=== PATIENT | female | born 1995 | race Caucasian/White ===

== ENCOUNTER 2016-03-24 17:23 | Emergency (ER) | payer BC ==
[~2016-03-24] VITALS: Ht 167.6 cm; Wt 53.9 kg
[2016-03-24 17:35] VITALS: TEMP 37; Ht 167.6 cm; Wt 53.9 kg
[2016-03-24] MEDS ORDERED: FAMOTIDINE 20MG/102 ML D5W IV STA (17:48)
[2016-03-24] MEDS ORDERED: DiphenhydrAMINE HCL 50 MG/ML VIAL IV STA (17:48)
--- NOTE | 2016-03-24 18:44 | EMERGENCY ROOM VISIT NOTE ---
History First contact with patient: 17:39 Chief Complaint: ALLERGIC REACTION Stated Complaint: ALLERGIC REACTION Nursing Triage Summary: Pt presents with swelling to lip and left eye, started at 1500. Denies difficulty swallowing. Pt seen at [facility] and given a steroid (decadron ) before coming here. Pt reports feeling lightheaded in the waiting room and hives. Pt states, "This happens all the time since Jan.18, that was the first time. They don't know what I'm having a rxn to." Pt rx Pepcid and Prednisone at urgent care. Denies SOB. History of Present Illness The patient is a 20 year old female who presents to the Emergency Room with complaints of swelling to her lip and left eye which started approximately 3 hours ago. She also reports an itchy rash to the right side of her neck. The patient states that she has had approximately 15 episodes of similar symptoms over the past 2 months. She states the first episode occurred when she was in [place] and this was the most severe. At that time, she had swelling of both of her lips and both of her eyes. She has since seen an electronics instructor, who did blood tests which did not show what the patient was allergic to. She has a follow-up appointment next week with her electronics instructor. She states that when she has these reactions, her lips become swollen and she sometimes has swelling of her eyes. She states that the reaction came on suddenly 3 hours ago. She denies any new medications, new foods, or new environmental exposures. She denies any shortness of breath, difficulty swallowing, abdominal pain, nausea or vomiting. She was initially seen at [facility] and given an injection of a steroid and prescription for prednisone and Pepcid. She has not taken any other medications. She was told at [facility] to come here if her symptoms become worse, and she states that she feels the lip swelling may be worsening. Review of Systems A complete 10-point Review of Systems was discussed with the patient, with pertinent positives and negatives listed in the History of Present Illness. All remaining Review of Systems questions can be considered negative unless otherwise specified. Social History Smoking Status: Current Every Day Smoker Current/Historical Medications No Active Prescriptions or Reported Meds Allergies Coded Allergies: No Known Allergies (Unverified , 03/24/16) Physical Exam Vital Signs Date Time Temp Pulse Resp B/P Pulse Ox O2 Delivery O2 Flow Rate FiO2 03/24/16 18:55 75 20 120/81 99 03/24/16 17:35 37.0 90 20 123/79 98 Room Air Physical Exam VITALS: Vitals are noted on the nurse's note and reviewed by myself. Vital signs stable. GENERAL: This is a 20-year-old female, in no acute distress, nondiaphoretic, well-developed well-nourished. SKIN: There are erythematous urticarial lesions over the right side of the neck. No further rashes. FACE: There is swelling of the upper lip and minimal swelling of the left infraorbital region. There is no additional swelling. HEENT: Normocephalic. PERRLA. EOMI. Nares patent. Mucous membranes moist. Neck is supple without nuchal rigidity. HEART: Regular rate and rhythm without murmurs gallops or rubs. LUNGS: Clear to auscultation bilaterally without wheezes, rales or rhonchi. ABDOMEN: Soft, nontender to palpation. NEURO: Patient was alert and oriented to person place and time. Medical Decision & Procedures Medications Administered Medications (Trade) Dose Ordered Sig/Berto Route Start Time Stop Time Status Last Admin Dose Admin Diphenhydramine HCl (Benadryl Inj) 50 mg NOW STAT IV 03/24/16 17:48 03/24/16 17:50 DC 03/24/16 17:58 50 MG Famotidine (Pepcid 20mg/100 ml) 20 mg ONE STAT IV 03/24/16 17:48 03/24/16 17:50 DC 03/24/16 17:58 20 MG Medical Decision Differential diagnosis includes allergic reaction, anaphylaxis, angioedema, among others. The patient was evaluated as above. She does have swelling of the upper lip and left infraorbital region. She has had multiple episodes like and has seen an electronics instructor at home. She already received Decadron prior to arrival here. She was given 50 mg Benadryl IV and 20 mg Pepcid IV. On reassessment, she did have some improvement of her swelling and felt ready for discharge home. She will take the prednisone and Pepcid as prescribed by [facility]. The patient should return for worsening symptoms. She verbalized understanding of my assessment and treatment plan and was discharged home in good condition. Impression Primary Impression: Facial swelling Departure Information Dispostion Home / Self-Care Condition GOOD Prescriptions No Active Prescriptions or Reported Meds Referrals Kelly Rubio M.D. (PCP) Patient Instructions My [facility] Additional Instructions You have been treated in the Emergency Department for an Allergic Reaction. You have been treated and monitored in the Emergency Department appropriately. You should take Benadryl (diphenhydramine) []25-50 mg orally every 4-6 hours for the next 5-7 days. This medication is [id number] and you will NOT need a prescription to purchase this at your local pharmacy. You should continue taking the Benadryl for the COMPLETION of the 5-7 days. This is to prevent a rebound allergic reaction in the event that allergens are still present in your system. Take the prednisone and Pepcid as prescribed to you by [facility]. Follow-up with your electronics instructor as needed. As with every Emergency Department visit, you should follow-up with your primary care provider in 2-3 days for reevaluation. Return to the Emergency Department if your current symptoms worsen despite treatment course outlined above, or if you develop any of the following symptoms : wheezing, tongue or worsening face swelling, tightness in your throat, shortness of breath, or fainting.
[2016-03-24 18:55] VITALS: BP 120/81; PULSE 75; O2SAT 99
== END 2016-03-24 18:57 | disposition home or self-care (01) ==
LOC: C.EDB 17:26 → C.EDC 18:57
DX: R22.0 Localized swelling, mass and lump, head (principal); F17.200 Nicotine dependence, unspecified, uncomplicated

== ENCOUNTER 2016-04-06 16:27 | Emergency (ER) | payer BC ==
[~2016-04-06] VITALS: Ht 167.6 cm; Wt 53.5 kg
[2016-04-06 16:36] VITALS: TEMP 36.9; Ht 167.6 cm; Wt 53.5 kg
[2016-04-06] MEDS ORDERED: XYLOCAINE 1%/SOD BICARB 20 ML VIAL INFIL ONE (17:00)
[2016-04-06] MEDS ORDERED: FAMO40TA6 PO (17:16)
[2016-04-06 18:07] VITALS: BP 132/76; PULSE 98; O2SAT 99
--- NOTE | 2016-04-06 19:18 | EMERGENCY ROOM VISIT NOTE ---
ED Visit Note First contact with patient: 16:43 CHIEF COMPLAINT: Finger laceration HISTORY OF PRESENT ILLNESS: This 20 year old female patient presents to the emergency department after cutting the left second finger while opening a wine bottle at home. The bleeding has not stopped. Denies weakness or numbness of the finger. The patient has full range of motion of the fingers. The patient rates the pain as dull and 5/10. The patient denies any other injuries. The patient's tetanus shot is up to date. REVIEW OF SYSTEMS: A 6 system review of systems was completed with positives and pertinent negatives listed in the HPI. ALLERGIES: No known allergies MEDICATIONS: No chronic medications PMH: Otherwise healthy SOCIAL HISTORY: Student who lives locally PHYSICAL EXAM: Vital Signs: Reviewed Nurse's notes, vital signs stable. GENERAL : White female, in no acute distress, well developed, well nourished. SKIN: There is a V shaped 3.0 cm long laceration on the palmar aspect of the left second finger. The edges gape apart with traction. There is no foreign material in the wound and it looks clean. There is no significant bleeding. No deep structures such as tendons, bones, or significant blood vessels are seen in the base of the wound. Extension and flexion of the finger is full and strong. Full range of motion of the wrist and other fingers. Capillary refill less than 2 seconds. Normal sensation to light and sharp touch. EMERGENCY DEPARTMENT COURSE: I examined the patient. Verbal consent was obtained to perform the procedure. Using sterile technique the wound was cleansed with Betadine. 3 ml of 1% buffered lidocaine was used to perform a digital block to anesthetize the patient. The area was sterilely draped. Once the patient was anesthetized, the wound was copiously irrigated under pressure with sterile saline. The wound was explored and there were no deep structures injured. The laceration was repaired using 3 simple interrupted 5-0 nylon sutures. The patient tolerated the procedure well. Hemostasis was achieved. The area was cleaned with sterile saline and dressed with bacitracin ointment and bandage. The patient was discharged home in good condition. DIAGNOSIS: Finger laceration Current/Historical Medications Scheduled Famotidine (Pepcid), 40 MG PO BID Allergies Coded Allergies: No Known Allergies (Unverified , 03/24/16) Vital Signs Date Time Temp Pulse Resp B/P Pulse Ox O2 Delivery O2 Flow Rate FiO2 04/06/16 18:07 98 12 132/76 99 04/06/16 16:36 36.9 63 18 119/82 94 Room Air Departure Information Impression Primary Impression: Laceration Dispostion Home / Self-Care Condition GOOD Referrals Kelly Rubio M.D. (PCP) Forms HOME CARE DOCUMENTATION FORM, IMPORTANT VISIT INFORMATION Patient Instructions My [facility] Additional Instructions Keep wound clean and dry. Do not allow any crusting or dried blood to accumulate on sutures. If this occurs, use a mild soap/water on a Q-tip to clean the wound. Do not use Peroxide to clean the wound as this can delay healing Use an antibiotic ointment like Bacitracin for 3-4 days, then let wound dry. You may bathe and shower as normal, but DO NOT SOAK the wound. Suture removal in about 7 days with your Family Doctor or in the ER. Return sooner for any signs of infection, increasing redness, swelling, or drainage.
== END 2016-04-06 18:09 | disposition home or self-care (01) ==
LOC: C.EDB 16:28 → C.EDD 18:09
DX: S61.211A Laceration without foreign body of left index finger without damage to nail, initial encounter (principal); Y28.8XXA Contact with other sharp object, undetermined intent, initial encounter